=== PATIENT | male | born 1960 | race Caucasian/White ===

== ENCOUNTER 2018-01-18 16:48 | Inpatient (IN) | payer OTHER ==
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
[2018-01-18 17:19] LABS: INR 1.03 (0.83-1.16); PROTIME(PATIENT) 13.7 SEC (12.0-15.0)
[2018-01-18 17:24] LABS: PLATELET COUNT 233 10^3/uL (150-400)
[2018-01-18] MEDS ORDERED: TDAP ADULT 0.5 ML INJ (BOOSTRIX) IM ONE ×2 (17:52→18:41)
[2018-01-18] MEDS ORDERED: IOPAMIDOL (ISOVUE-300) 100 ML BTL ONE (18:19)
[2018-01-18] MEDS ORDERED: NALOXONE HCL 0.4 MG/ML INJ IVP PRN (18:20)
[2018-01-18] MEDS ORDERED: ONDANSETRON 4 MG/2 ML VIAL IVP PRN (18:20)
[2018-01-18] MEDS ORDERED: ACETAMINOPHEN 325 MG TAB PO PRN (18:20)
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
--- NOTE | 2018-01-18 23:44 | TRAUMAPN ---
Trauma Progress Note Assessment/Plan: tertiary survey. doing well. c/o nausea. no neck pain. c/o right lateral pelvic pain only. no headache or visual changes. BP 90-100. alert and appropriate. right supraorbital laceration clean. PERRLA, EOMI. neck nontender - no pain with flex/ex/rotation - collar removed and cleared. abd nontender. right lateral PSIS tenderness with ecchymosis. no hip tenderness. will obtain pelvic Xray to assess for chip fracture. will apply dermabond to facial lac. c-spine clinically cleared. repeat CXR in am. Objective: Vital Signs Temp Pulse Resp BP Pulse Ox 36.2 C 78 18 98/59 L 95 01/18/18 20:00 01/18/18 22:00 01/18/18 22:00 01/18/18 22:00 01/18/18 22:00 01/17/18 01/18/18 01/19/18 05:59 05:59 05:59 Intake Total 2000 Output Total 600 Balance 1400 PT 13.7 SEC (12.0-15.0) 01/18/18 16:52 INR 1.03 (0.83-1.16) 01/18/18 16:52
[2018-01-18] MEDS ORDERED: SKIN ADHESIVE (DERMABOND) 1 EACH TP ONE (23:50)
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
[2018-01-19] MEDS: ACETAMINOPHEN 650 MG/20.3 ML UDCUP PO PRN ×3 (10:05→19:43)
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
--- NOTE | 2018-01-19 13:44 | WOCRNPDOC ---
WOCRN Advanced Assessment Note - Skin Integrity Problem, Advanced Assess Coccyx Dressing Type: Open to Air Carissa Wound Tissue: Blanching, Intact Wound Bed Color: Brown, [place] Wound Bed Constitution: Scab Site Measurement - Head-to-Toe Length X Width X Depth (cm): 0.4x0.3xscab Skin Integrity Problem Comment: Patient rolled to his right side unassisted. Patient states that he has a recurrent "pimple" to this area. Carissa-wound skin blanching and intact. Very small scab present. No fluctuance noted. Patient refusing dressings to area at this time. Wound care will not continue to round. Please reconsult PRN.
[2018-01-20 07:46] VITALS: BP 114/66
[2018-01-20] MEDS: ACETAMINOPHEN 650 MG/20.3 ML UDCUP PO PRN ×2 (08:49→13:01)
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
--- NOTE | 2018-01-24 14:36 | ASMTCAGE ---
CAGE Additional Comments Late entry - Attempted to meet with pt in ED for CAGE screening. Pt alert and oriented x 2, unwilling to answer questions at the time of screening. Date Signed: 01/24/2018 02:35 PM Electronically Signed By:Christine Hull RN
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
== END 2018-01-20 16:47 | disposition home or self-care (01) | DRG 87 ==
LOC: EDUNIT# → INTOOBSV 17:47 → F2N 18:53 → OBSVTOIN 01-19 09:31
PROVIDERS: ADMIT Surgery; ATTEND Surgery
PROC: 0HQ1XZZ Repair Face Skin, External Approach (ICD-10-PCS; principal; 2018-01-18)
DX: S06.6X0A Traumatic subarachnoid hemorrhage without loss of consciousness, initial encounter (principal); S02.412A LeFort II fracture, initial encounter for closed fracture; S01.111A Laceration without foreign body of right eyelid and periocular area, initial encounter; S70.01XA Contusion of right hip, initial encounter; S01.21XA Laceration without foreign body of nose, initial encounter; R91.8 Other nonspecific abnormal finding of lung field; R09.02 Hypoxemia; F10.920 Alcohol use, unspecified with intoxication, uncomplicated; Y90.8 Blood alcohol level of 240 mg/100 ml or more; R40.2432 Glasgow coma scale score 3-8, at arrival to emergency department; H57.02 Anisocoria; L89.159 Pressure ulcer of sacral region, unspecified stage; V67.5XXA Driver of heavy transport vehicle injured in collision with fixed or stationary object in traffic accident, initial encounter; Y92.410 Unspecified street and highway as the place of occurrence of the external cause; Y99.0 Civilian activity done for income or pay; Z23 Encounter for immunization
CPT/HCPCS: 80305; 82947-QW; 92523-GN; 97116-GP; 97161-GP; 97166-GO; 97530-GP; 97535-GO; G0378; G0480; J2405; Q9967